=== PATIENT | female | born 1965 | race Caucasian/White ===

== ENCOUNTER → 2017-10-19 | Day surgery (SDC) | payer OTHER ==
[~2017-10-19] MED LIST: BUPIVACAINE/EPINEPHRINE 0.5% PF 30 ML VIAL ONE; LACTATED RINGER'S 1000 ML INJ 1,000 ML ONE; MIDAZOLAM HCL 2 MG/2 ML VIAL ONE; ONDANSETRON HCL 4 MG/2 ML VIAL IV PUSH ONE; PROPOFOL 200 MG/20 ML AMP IV ONE; ceFAZolin 2 GM PREMIX 50 ML ONE
--- NOTE | 2017-10-19 12:32 | TN ---
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 PROCEDURE 1. Resection of [id number] chronic fistula left medial breast. 2. Central duct excision of the left breast. ANESTHESIA General and local anesthetic ATTENDING SURGEON Harleen Madera MD HOUSEHOLD MANAGER Staff BLOOD LOSS Less than 10 cc COMPLICATIONS None FINDINGS A fistula draining tract from a chronically inflamed nonbloody ductal discharge from the ductal system to an area of the skin approximately 1 cm medial of the left areola of the left breast completely excised, chronically inflamed ducts of the left retroareolar completely excised. All tissue remaining grossly normal. INDICATIONS FOR PROCEDURE The patient is a 52-year-old female with a history tobacco abuse with recurrent left breast abscess. 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 She was referred to breast surgery for further evaluation. 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 The patient underwent imaging which was of note a BI-RADS low risk for malignancy on her breast imaging. There is no distinct mass on exam. I discussed with the patient the risks, benefits, and alternatives to treatment including a central duct excision for treatment of her chronic drainage, as well as to rule out any malignancy and also to resect the fistula. The risks, benefits and alternatives were discussed and she agreed to undergo the procedure. In the past, she was aggressively counseled to quit smoking for treatment of her disease, as well as well as for postoperative recovery. PROCEDURE The patient was taken to the operating room, placed in a supine position and placed under general anesthesia with an LMA airway. The left breast was prepped and draped in a sterile fashion. Time-out was performed. Local anesthetic was instilled throughout the nipple-areolar and the skin of the left breast. We made an elliptical incision over the fistula at the 9 o'clock position of the left breast with a 15 blade scalpel and this was carried down as sort of a hockey stick type incision down at the skin areola junction at the 8 o'clock position. We used Bovie electrocautery to dissect the subcutaneous tissue and skin hooks to retract as we dissected out the fistula which tracked down medially under the breast. This was performed as a central duct excision with the Bovie electrocautery moving all breast tissue under the nipple-areolar and down to the central portion of the breast approximately 2 cm. All the major ductal type structures were excised with the Bovie electrocautery and this was excised en bloc with the fistula and the area of skin of the fistula. This was marked with a stitch anterior and lateral and passed off for pathologically for permanent processing. There was no evidence of any abscess or infection and there was essentially all normal appearing breast tissue and fatty parenchyma of the breast throughout the wound. We irrigated out with sterile saline. We turned towards closure. We elevated some skin flaps superiorly and inferiorly and told them to close the defect of the breast centrally with some interrupted 3-0 Vicryl sutures. We closed the skin with deep dermal 3-0 Vicryl sutures followed by 4-0 Monocryl and Dermabond. The patient, at this point in time, was discontinued from the anesthesia and taken to PACU in stable condition. The patient tolerated the procedure well with no apparent complications. All counts were correct and I was present and scrubbed for the entire procedure. MD LIZZETTE Bhatt/VISHNU /11:45 AM /12:09 PM SAMANTHA
== END | disposition home or self-care (01) ==
LOC: ESDC 07:48
PROVIDERS: ATTEND Surgery
DX: N64.52 Nipple discharge (principal); N61.1 Abscess of the breast and nipple
CPT/HCPCS: 00400; 19112; 88305; J0690; J2250; J2405; J3010; J7120; 88307